=== PATIENT | female | born 1960 | race Two or more races ===

== ENCOUNTER 2022-11-19 12:29 | Emergency (ER) | payer OTHER ==
[~2022-11-19] VITALS: Ht 152.4 cm; Wt 69.4 kg
[2022-11-19] MEDS ORDERED: PREVACID15 M1 (12:51)
[2022-11-19] MEDS ORDERED: SINGULAIR4 MG (12:51)
[2022-11-19] MEDS ORDERED: FLONASE ALLERG9.9 ML (12:52)
== END 2022-11-19 18:57 | disposition home or self-care (01) ==
LOC: ER 12:29
DX: S92.912A Unspecified fracture of left toe(s), initial encounter for closed fracture (principal); S93.402A Sprain of unspecified ligament of left ankle, initial encounter; W19.XXXA Unspecified fall, initial encounter; Y93.9 Activity, unspecified; Y92.9 Unspecified place or not applicable; Z91.041 Radiographic dye allergy status

== ENCOUNTER 2022-12-07 12:41 | Emergency (ER) | payer OTHER ==
[~2022-12-07] VITALS: Ht 152.4 cm; Wt 69.9 kg
[~2022-12-07 12:41] MED LIST: FLONASE ALLERG9.9 ML; PREVACID15 M1; SINGULAIR4 MG
[2022-12-07] MEDS ORDERED: AVALIDE 300-121 EACH PO (12:55)
[2022-12-07] MEDS ORDERED: PREVACID30 MG PO (12:56)
== END 2022-12-07 17:27 | disposition home or self-care (01) ==
LOC: ER 12:41
DX: I82.409 Acute embolism and thrombosis of unspecified deep veins of unspecified lower extremity (principal); D68.59 Other primary thrombophilia; Z91.041 Radiographic dye allergy status; Z20.822 Contact with and (suspected) exposure to COVID-19; M79.605 Pain in left leg